=== PATIENT | female | born 1950 | race Caucasian/White ===

== ENCOUNTER → 2017-05-19 | Outpatient (CLI) | payer OTHER ==
[~2017-05-19] MED LIST: HYDROCHLOROTH12.5 M1 PO; PREVACID30 MG PO
--- NOTE | ~2017-05-19 | EKG ---
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 : 1950 Requested By: Marisa Thibodeaux Order Number: [id number] MD: Gentry Corbin Measurements Intervals [place] Rate: 104 P: 65 OK: 151 QRS: 9 QRSD: 94 T: 59 QT: 345 QTc: 454 Interpretive Statements Sinus tachycardia Multiple premature complexes, vent & supraven Abnormal R-wave progression, late transition No previous ECG available for comparison Electronically Signed On 05-20-2017 9:18:18 [employer] by Gentry Corbin [email or web address] <ELECTRONICALLY SIGNED> By: Gentry Corbin MD, [facility] 05/20/17917 1 1 Gentry Corbin MD, [facility] /EPI
== END | disposition home or self-care (01) ==
LOC: LITH 08:40
DX: N20.0 Calculus of kidney (principal)

== ENCOUNTER → 2017-07-14 | Outpatient (CLI) | payer OTHER ==
[~2017-07-14] MED LIST changes: +FLOMAX0.4 MG PO; +OXYBUTYNIN 5 MG5 M2 PO
== END | disposition home or self-care (01) ==
LOC: LITH 06-24 14:14
DX: N20.0 Calculus of kidney (principal); Z98.890 Other specified postprocedural states; Z95.5 Presence of coronary angioplasty implant and graft